=== PATIENT | male | born 1995 | race Two or more races ===

== ENCOUNTER 2020-10-23 06:32 | Emergency (ER) | payer OTHER, SELFPAY ==
--- NOTE | ~2020-10-23 | XR_ITS ---
EXAMINATION: XR SHOULDER, RIGHT CLINICAL INFORMATION: Right shoulder pain. COMPARISON: None TECHNIQUE: AP external rotation, Grashey, scapular Y, and axillary views of the right shoulder. FINDINGS: The bones and soft tissues are normal. No fracture. Glenohumeral and acromioclavicular alignment is anatomic with normal joint space. No abnormal soft tissue calcifications. XR/XR shoulder RT min 2V IMPRESSION: Normal right shoulder.
[2020-10-23 06:46] VITALS: BP 112/74; PULSE 61; RESP 16; TEMP 36.7; O2SAT 99; BMI 19.3
--- NOTE | 2020-10-23 07:07 | ED_ITS ---
HPI - Extremity Problem General Chief complaint: Extremity Injury, Upper Stated complaint: Dislocated Shoulder Time Seen by Provider: 10/23/20 07:07 History of Present Illness HPI Narrative: This is a 25 years old male presented to the emergency department ambulatory complaining of right shoulder pain. He states that dislocated these right shoulder and relocated MD Complaint: extremity pain Onset (ago): hour(s) (1) Pain Consistency: constant Location: right Severity scale (1-10): 6 Quality: aching and sharp Radiation: none Relieving factors: nothing Exacerbating factors: range of motion Associated symptoms: denies other symptoms Related Data Home Medications Medication Instructions Recorded Confirmed No Known Home Meds 05/13/20 05/13/20 Allergies Allergy/AdvReac Type Severity Reaction Status Date / Time No Known Allergies Allergy Verified 05/13/20 15:33 Review of Systems Review of Systems: Yes all other systems are reviewed and are negative Cardiovascular: Cardiovascular: Reports no additional cardiovascular complaints Gastrointestinal: Gastrointestinal: Reports no additional gastrointestinal complaints, Denies abdominal pain and Denies belching Neurologic: Reports system reviewed and no additional complaints, except as documented PMFSH Past Medical History Attestation statement: The following information was validated with the patient. Medical History Instability of right shoulder joint No significant past medical history Pain in right shoulder Surgical History S/P tonsillectomy Family History Family History Maternal Grandfather Hypertension Heart disease Maternal Grandmother Hypertension Paternal Grandfather Alzheimer's dementia Social History Social History Alcohol intake: current Alcohol intake frequency: holidays/special occasions only Advance Directives: No Advance Directives Information Provided: No Physical Exam 2 Vital Signs: Vital Signs: Last Vital Signs Temp 98.0 F 10/23/20 06:46 Pulse 61 10/23/20 06:46 Resp 16 10/23/20 06:46 BP 112/74 10/23/20 06:46 Pulse Ox 99 10/23/20 06:46 Body Mass Index 19.3 Const: Other: patient is awake and alert not acute distress Orientation/consciousness: oriented to person, oriented to place, oriented to time and patient oriented x3 HENMT: Head: Yes normal to inspection Ears: hearing grossly normal bilaterally General nose exam: Normal external nose present Face and sinus: Yes normal facial exam Mouth: Normal oral and palatal mucosa present Neck: Neck: Yes normal visual inspection and Yes full ROM Chest: Chest palpation & inspection: normal inspection of the chest and normal palpation of entire chest wall Resp: Effort & Inspection: normal respiratory effort Cardio: Jugular venous distension: no JVD Palpation: normal PMI Rate: regular rate GI: Inspection: Yes normal to inspection Palpation (GI): Soft to palpation, nontender and no guarding Skin: General skin exam: no rashes or lesions noted and elasticity normal Neuro: General: oriented to person, oriented to place, oriented to time and patient oriented x3 Extrem: Other: there is tenderness in the right shoulder joint decreased range of motion no deformity MDM - Extremity (Nontraumatic) Imaging Data rt shoulder: Radiologist's impression: [address] [id number] ReportSigned Patient: Chong CampoverdeMR#: [id number]: 1995Acct:[id number]/Sex: 25 / MADM Date: 10/23/20Loc: EDAttending Dr: Ordering Physician: Generic ED Physician Date of Service: 10/23/20 Procedure(s): XR shoulder RT min 2V Accession Number(s): [id number] cc: Generic ED Physician~ EXAMINATION: XR SHOULDER, RIGHT CLINICAL INFORMATION: Right shoulder pain. COMPARISON: None TECHNIQUE: AP external rotation, Grashey, scapular Y, and axillary views of the right shoulder. FINDINGS: The bones and soft tissues are normal. No fracture. Glenohumeral and acromioclavicular alignment is anatomic with normal joint space. No abnormal soft tissue calcifications. XR/XR shoulder RT min 2V IMPRESSION: Normal right shoulder. 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
[2020-10-23] MEDS: Ibuprofen 800 MG TABLET PO (07:41)
== END 2020-10-23 07:44 | disposition home or self-care (01) ==
PROVIDERS: Emergency Provider Emergency Medicine; PCP Internal Medicine
DX: M25.511 Pain in right shoulder (principal)
CPT/HCPCS: 73030; 99283

== ENCOUNTER 2020-10-30 14:34 | Emergency (ER) | payer OTHER, SELFPAY ==
--- NOTE | ~2020-10-30 | XR_ITS ---
EXAMINATION: XR SHOULDER, RIGHT CLINICAL INFORMATION: Posterior dislocation. COMPARISON: Right shoulder radiographs 10/23/2020. TECHNIQUE: Right shoulder is imaged in 3 views. FINDINGS: There is no fracture or dislocation. The glenohumeral joint appears normal. The acromioclavicular alignment is normal. External rotation view demonstrates fine curvilinear mineralization possibly calcific tendinosis adjacent to greater tuberosity, in retrospect similar to previous exam 10/23/2020. XR/XR shoulder RT min 2V IMPRESSION: No fracture or dislocation.
--- NOTE | 2020-10-30 14:40 | ED_ITS ---
HPI - Extremity Problem General Stated complaint: SHOULDER POPPED OUT AT WORK Time Seen by Provider: 10/30/20 14:40 Source: patient Mode of arrival: ambulatory Limitations: no limitations History of Present Illness Complaint: other (R shoulder dislocation) Onset (ago): minute(s) Pain Consistency: other (improved but it still hurts) Location: right and upper extremity (shoulder) Quality: aching Radiation: none Relieving factors: other (used circular movements to reduce shoulder) Exacerbating factors: range of motion Associated symptoms: denies other symptoms Context: other (chronic dislocations) Related Data Home Medications Medication Instructions Recorded Confirmed No Known Home Meds 05/13/20 05/13/20 Allergies Allergy/AdvReac Type Severity Reaction Status Date / Time No Known Allergies Allergy Verified 05/13/20 15:33 Review of Systems Review of Systems: Constitutional : No Fever, No Chills ENT/Mouth : No Ear Pain, No Hoarseness Eyes: No Eye Pain, No Swelling, No Redness Cardiovascular : No Chest Pain, No SOB Respiratory : No Cough, No Dyspnea Gastrointestinal : No Nausea, No Vomiting, No Diarrhea Genitourinary : No Dysuria, No Hematuria Musculoskeletal : positive joint pain, No Myalgias, No Joint Swelling Skin : No Skin lacerations, No rash Neuro : No Weakness, No Numbness PMFSH Past Medical History Attestation statement: The following information was validated with the patient. Medical History Instability of right shoulder joint No significant past medical history Pain in right shoulder Surgical History S/P tonsillectomy Family History Family History Maternal Grandfather Hypertension Heart disease Maternal Grandmother Hypertension Paternal Grandfather Alzheimer's dementia Social History Social History (Updated 10/30/20 @ 14:44 by Carmen Padilla DO) Alcohol intake: current Alcohol intake frequency: holidays/special occasions only Patient Tobacco Use Status: Never used Tobacco Physical Exam Vital Signs: Appearance: Alert. Oriented X3. No acute distress. Eyes: Pupils equal, round and reactive to light. ENT: Pharynx normal. Neck: Normal inspection. Neck supple. CVS: Normal heart rate and rhythm. Pulses normal. Respiratory: No respiratory distress. Breath sounds normal. Abdomen: Soft and non-tender. Skin: Skin warm and dry. Normal skin color. Normal skin turgor. Extremities: No lower extremity edema. No calf ttp no deformity of R shoulder can range but there is pain - distal NV intact Neuro: Oriented X 3. No motor deficit. No sensory deficit. Procedures Orthopedic Splinting/Casting Injury #1: Side: right Upper Extremity Injury Location: shoulder Upper Extremity Immobilizer: sling/shoulder immobilizer MDM - Extremity (Nontraumatic) MDM Narrative Medical decision making narrative: 25yo male with recurrent shoulder dislocations - pushing cart at work shoulder popped out he is NV intact, shoulder is in on clinical exam, xray and sling ordered, will likely need orthopedic follow up Discharge Plan Discharge Clinical Impression: Anterior shoulder dislocation Qualifiers: Encounter type: initial encounter Laterality: right Qualified Code(s): S43.014A - Anterior dislocation of right humerus, initial encounter Patient Disposition: Home, Self-Care Instructions: Shoulder Dislocation (ED) Additional Instructions: return to ED for any worsening symptoms or concerns wear sling for 3 days - then avoid movements over the head, pulling, behind the back for 2 weeks Prescriptions: No Action No Known Home Meds RF: 0 Referrals: Shiraz Dillon PA-C [Physician Administrative Secretary] - 2 weeks Stand Alone Forms: Work/School Release
[2020-10-30 15:00] VITALS: BP 128/76; PULSE 86; RESP 18; TEMP 36.8; O2SAT 97; BMI 19.3
[2020-10-30] MEDS: Ibuprofen 600 MG TABLET PO (15:39)
[2020-10-30] MEDS: Acetaminophen 325 MG TABLET 650 MG PO (15:39)
== END 2020-10-30 15:44 | disposition home or self-care (01) ==
LOC: HO.ED 15:20
PROVIDERS: Emergency Provider Emergency Medicine; PCP Internal Medicine
DX: M24.411 Recurrent dislocation, right shoulder (principal)
CPT/HCPCS: 73030; 99283

== ENCOUNTER 2021-09-02 08:48 | Emergency (ER) | payer OTHER, SELFPAY ==
--- NOTE | 2021-09-02 | ECG_ITS ---
Test Reason : CP Blood Pressure : / mmHG Vent. Rate : 113 BPM Atrial Rate : 113 BPM P-R Int : 114 ms QRS Dur : 092 ms QT Int : 304 ms P-R-T Axes : 073 092 057 degrees QTc Int : 416 ms Sinus tachycardia Rightward axis Cannot rule out Anterior infarct , age undetermined Abnormal ECG No previous ECGs available Referred By: Generic ED Physician Electronically Signed By:JUAN DAVID SONI MD
--- NOTE | ~2021-09-02 | XR_ITS ---
EXAMINATION: XR CHEST CLINICAL INFORMATION: Cough and chills. COMPARISON: None TECHNIQUE: 2 views of the chest were obtained. FINDINGS: No significant abnormality is noted involving the heart, lungs, mediastinum, bony thorax or soft tissues. XR/XR chest 2V IMPRESSION: No acute cardiopulmonary process.
[2021-09-02 08:56] VITALS: BP 145/86; PULSE 110; RESP 17; TEMP 36.6; O2SAT 99
[2021-09-02 09:41] LABS: COVID-19 Test Negative (Negative); IDNOW Serial# 16C4AD1C
[2021-09-02 10:22] LABS: IDNOW Serial# 55D5AD1C; Influenza A Negative (Negative); Influenza B2 Negative (Negative)
--- NOTE | 2021-09-02 10:25 | ED_ITS ---
HPI - URI/Sore Throat General Chief Complaint: Upper Respiratory Symptoms Stated Complaint: Covid symptoms Time Seen by Provider: 09/02/21 09:29 Source: patient Mode of arrival: ambulatory Limitations: no limitations History of Present Illness HPI Narrative: 26-year-old male presenting to the ED with complaints of 2 days of fatigue, malaise, body aches, nasal congestion/ rhinorrhea, cough without any sputum with chest tightness and lightheadedness. Reports that he recently was in the clubs exposed to multiple people and was not wearing a mask although denies any sick contacts that he is aware of. He denies any actual measured fevers, neck pain / stiffness, trouble swallowing or breathing, sore throat, loss of smell, ear pain, shortness of breath, dyspnea on exertion, orthopnea, palpitations, nausea/vomiting / diarrhea constipation, abdominal pain, rashes, recent travel or any other symptoms complaints or concerns at this time. MD elicited complaint: cough, rhinorrhea and nasal congestion Onset (ago): day(s) (2) Consistency: constant and progressively worsening Severity: mild Description of mucous: clear and watery Able to tolerate fluids by mouth: Yes Exacerbating factors: deep breaths Relieving factors: nothing Context: other ( He reports that he has recently been in the clubs therefore exposed to multiple people and not wearing a mask) Associated symptoms: chills, myalgias, headache, rhinorrhea, nasal congestion, cough and other ( decreased taste sensation) Treatments prior to arrival: none Related Data Previous Rx's Medication Instructions Recorded albuterol sulfate 90 mcg/actuation 1 inh INHALATION QID PRN #8.5 g 09/02/21 aerosol inhaler azithromycin 250 mg tablet See Rx Instructions .ROUTE 09/02/21 .COMPLEX #6 tab codeine 10 mg-guaifenesin 100 mg/5 5 ml PO Q6H PRN #120 ml 09/02/21 mL oral liquid (Guaifenesin AC) Allergies Allergy/AdvReac Type Severity Reaction Status Date / Time No Known Allergies Allergy Verified 05/13/20 15:33 Review of Systems Review of Systems: Constitutional : + Chills/fatigue/malaise,No Weight loss, No Fever, No Chills, No Night Sweats, No Fatigue, No Malaise ENT/Mouth : + nasal congestion/ rhinorrhea and decreased taste sensation, No Hearing loss, No Ear Pain, No Sinus Pain, No Hoarseness, No sore throat, No Swallowing Difficulty Eyes: No Eye Pain, No Swelling, No Redness, No Foreign Body, No Discharge, No Vision Changes Cardiovascular : No Chest Pain, No SOB, No Dyspnea on Exertion, No Orthopnea, No Edema, No Palpitations Respiratory : + Cough with chest tightness, No Sputum, No Wheezing, No Smoke Exposure, No Dyspnea Gastrointestinal : No Nausea, No Vomiting, No Diarrhea, No Constipation, No abdominal Pain, No Hematochezia, No Melena Genitourinary : no irregular bleeding, No Dysuria, No Urinary Frequency, No Hematuria, No Urinary Incontinence, No Urgency, No Flank Pain, No Urinary Flow Changes, No Hesitancy Musculoskeletal : No joint pain, + Myalgias, No Joint Swelling Skin : No Skin Lesions, No rash Neuro : No Weakness, No Numbness, No Paresthesias, No Loss of Consciousness, No Dizziness, No Headache Psych : No Anxiety/Panic, No Depression, No SI/HI/AH/VH, No Social Issues, Heme/Lymph: No Bruising, No Bleeding,No Lymphadenopathy Endocrine : No Polyuria, No Polydipsia, No Temperature Intolerance Yes all other systems are reviewed and are negative [facility] Past Medical History Attestation statement: The following information was validated with the patient. Medical History Instability of right shoulder joint Pain in right shoulder Surgical History S/P tonsillectomy Family History Family History Maternal Grandfather Hypertension Heart disease Maternal Grandmother Hypertension Paternal Grandfather Alzheimer's dementia Social History Social History Alcohol intake: current Alcohol intake frequency: holidays/special occasions only Patient Tobacco Use Status: Never used Tobacco Advance Directives: No Advance Directives Information Provided: No Physical Exam Vital Signs: Vital Signs: Last Vital Signs Temp 97.9 F 09/02/21 08:56 Pulse 95 09/02/21 10:27 Resp 17 09/02/21 10:27 BP 145/86 H 09/02/21 08:56 Pulse Ox 97 09/02/21 10:27 BMI result Body Mass Index 20.0 vital signs have been reviewed as normal and appeared to be correct. Blood pressure 145/86. Heart rate 110 Respiration rate normal. Temperature normal. Oxygen saturation normal. Appearance: Alert. Oriented X3. No acute distress. Head: Normal external exam. Normocephalic. Atraumatic. Eyes: PERRLA. EOMI. Conjunctiva and sclera normal. Eyelids normal. ENT: EAC normal. TM's Normal. Pharynx normal. Uvula midline. Moist mucous membranes. No lesions/ulcerations or masses noted on the tongue. Normal voice. No trismus noted. No drooling noted. No muffled voice noted. Neck: Normal inspection. Neck supple. FROM. No adenopathy. Thyroid Normal. No meningeal signs. No neck mass noted. CVS: Normal heart rate and rhythm. Heart sound normal. Pulses normal throughout. No murmurs/rales/gallops. Respiratory: No respiratory distress. Painless inspiration. Breath sounds normal. No wheezes/rales/rhonchi noted. Chest nontender. No accessory muscle usage noted or decreased air movement noted. Abdomen: Soft and nontender. Back: Full range of motion noted. Nontender. No signs of trauma. Patient neuro intact bilaterally and distally on all 4 extremities. Patient's reflexes intact bilaterally and distally on all 4 extremities. No rashes/lesion/induration/fluctuance or signs of infection noted. Skin: Skin warm and dry. Normal skin color. Normal skin turgor. No rashes/lesions/lacerations noted. Extremities: No lower extremity edema. No calf tenderness is noted. Extremities exhibit normal range of motion and nontender. Neuro: Oriented X 3. No motor deficit. No sensory deficit. Reflexes normal. Normal steady gait. No focal neuro deficits noted. CN's II-XII intact bilaterally? Vascular: + radial pulses/+ 2 distal pedal pulses/+2 dorsalis pedis b/l. Normal cap refill. No cyanosis noted to upper extremity nails and lower extremity toes nails. Course Course Course Narrative: 26-year-old male presenting to the ED with complaints of 2 days of fatigue, malaise, body aches, nasal congestion/ rhinorrhea, cough without any sputum with chest tightness and lightheadedness. Reports that he recently was in the clubs exposed to multiple people and was not wearing a mask although denies any sick contacts that he is aware of. He denies any actual measured fevers, neck pain / stiffness, trouble swallowing or breathing, sore throat, loss of smell, ear pain, shortness of breath, dyspnea on exertion, orthopnea, palpitations, nausea/vomiting / diarrhea constipation, abdominal pain, rashes, recent travel or any other symptoms complaints or concerns at this time. patient negative for COVID. Patient negative for flu. Chest x-ray within normal limits. EKG sinus tachycardia with ventricular rate of 113 with a right leo axis no acute ischemic changes are noted. No prior EKGs to compare to at this time. Will DC home with symptomatic treatment instructions return if any new or worsening symptoms to follow up with primary care provider. Patient understands agrees with this plan. MDM - URI/Sore Throat Medical Records Attestation: I reviewed the patient's medical records. Lab Data Attestation: I reviewed the patient's lab results. Labs: Lab Results 09/02/21 09/02/21 Range/Units 08:56 09:55 COVID-19 ([facility]) Negative (Negative) COVID-19 Clin Com See Note Influenza Type A ([facility]) Negative (Negative) Influenza Type B ([facility]INA) Negative (Negative) Influenza A & B Note See Note ECG Data Attestation: I personally reviewed and interpreted this ECG as follows: ECG interpretation date: 09/02/21 ECG interpretation time: 08:57 Interpretation: EKG sinus tachycardia with ventricular rate of 113 with a right leo axis no acute ischemic changes are noted. No prior EKGs to compare to at this time. Discharge Plan Discharge Clinical Impression: Upper respiratory infection Patient Disposition: Home, Self-Care Instructions: Upper Respiratory Infection (ED) Prescriptions: New azithromycin 250 mg tablet See Rx Instructions .ROUTE .COMPLEX Qty: 6 0RF Rx Instructions: take 500 mg today (day 1), then 250 mg for 4 days (days 2-5) codeine-guaifenesin [Guaifenesin AC] 10-100 mg/5 mL liquid 5 ml PO Q6H PRN (Reason: cold symptoms) Qty: 120 0RF albuterol sulfate 90 mcg/actuation HFA aerosol inhaler 1 inh inhalation QID PRN (Reason: shortness of breath or wheezing) Qty: 8.5 0RF Referrals: Katrin Peña MD [Primary Care Provider] - 2 days Stand Alone Forms: Work/School Release
[2021-09-02 10:27] VITALS: PULSE 95; RESP 17; O2SAT 97
== END 2021-09-02 11:01 | disposition home or self-care (01) ==
PROVIDERS: Physician Assistant Medical; Emergency Provider Emergency Medicine; PCP Internal Medicine
DX: J06.9 Acute upper respiratory infection, unspecified (principal); R07.89 Other chest pain; M79.10 Myalgia, unspecified site; R50.9 Fever, unspecified; R05.9 Cough, unspecified; Z20.822 Contact with and (suspected) exposure to COVID-19; Z79.899 Other long term (current) drug therapy
CPT/HCPCS: 71046; 87502; 87635; 93005; 99283; 99284

== ENCOUNTER → 2022-03-23 15:47 | Outpatient (BNVA) | payer OTHER, SELFPAY | PROVIDERS: PCP Internal Medicine; Visit Provider Surgery | DX: L72.0 Epidermal cyst (principal) | CPT/HCPCS: 99202 ==

== ENCOUNTER 2022-03-27 10:09 | Outpatient (REF) | payer OTHER, SELFPAY ==
--- NOTE | ~2022-03-27 | XR_ITS ---
EXAMINATION: XR SHOULDER, RIGHT CLINICAL INFORMATION: Pain in shoulder COMPARISON: X-ray the right shoulder October 2020 TECHNIQUE: AP external rotation, Grashey, scapular Y, and axillary views of the right shoulder. FINDINGS: The bones and soft tissues are normal. No fracture. Glenohumeral and acromioclavicular alignment is anatomic with normal joint space. No abnormal soft tissue calcifications. XR/XR shoulder RT min 2V IMPRESSION: Normal right shoulder. The previously noted mineralization adjacent to the greater tuberosity on the prior x-ray is not identified
== END 2022-03-27 10:10 | disposition home or self-care (01) ==
LOC: HO.HOSX 10:09
PROVIDERS: Visit Provider Physician Assistant
DX: M25.311 Other instability, right shoulder (principal)
CPT/HCPCS: 73030; 99202; 99212

== ENCOUNTER 2022-04-01 16:56 | Outpatient (REF) | payer OTHER, SELFPAY ==
[2022-04-01 18:23] LABS: Influenza A PCR NEGATIVE (Negative); Influenza B PCR NEGATIVE (Negative); Resp Syncy Virus RNA Qual PCR NEGATIVE (Negative); SARS COV2 PCR INHOUSE NEGATIVE (Negative)
== END 2022-04-01 16:57 | disposition home or self-care (01) ==
LOC: HO.LAB 16:56
PROVIDERS: Visit Provider Internal Medicine
DX: R09.89 Other specified symptoms and signs involving the circulatory and respiratory systems (principal); Z20.822 Contact with and (suspected) exposure to COVID-19
CPT/HCPCS: 0241U

== ENCOUNTER 2022-04-03 10:57 | Emergency (ER) | payer OTHER, SELFPAY ==
--- NOTE | 2022-04-03 11:02 | ED.DENTAL ---
HPI - Dental/Oral General Chief complaint: Dental/Oral <WINSTON Bright - Last Filed: 04/03/22 11:10> Stated complaint: ? Dental Abscess <WINSTON Bright - Last Filed: 04/03/22 11:10> Time Seen by Provider: 04/03/22 11:18 <WINSTON Bright - Last Filed: 04/03/22 11:10> Source: patient and family ( Mother at bedside) <WINSTON Edwards - Last Filed: 04/03/22 12:43> Mode of arrival: ambulatory <WINSTON Edwards - Last Filed: 04/03/22 12:43> Limitations: no limitations <WINSTON Edwards - Last Filed: 04/03/22 12:43> History of Present Illness HPI Narrative: 26-year-old male presenting to the ER with complaints of left upper dental pain/ facial swelling since yesterday worse today. Reports he has not gone to a dentist recently. Denies any fevers, trouble swallowing or breathing, any drooling or trouble handling secretions or change in his voice or any rashes or any falls or trauma or any other symptoms complaints or concerns at this time. <WINSTON Edwards - Last Filed: 04/03/22 12:43> MD Complaint: tooth pain <WINSTON Edwards - Last Filed: 04/03/22 12:43> Teeth map: 1. <WINSTON Bright - Last Filed: 04/03/22 11:10> 1. <WINSTON Edwards - Last Filed: 04/03/22 12:43> Onset (ago): day(s) ( Since yesterday worse today) <WINSTON Edwards - Last Filed: 04/03/22 12:43> Duration: constant <WINSTON Edwards - Last Filed: 04/03/22 12:43> Severity: moderate <WINSTON Edwards - Last Filed: 04/03/22 12:43> Severity scale (1-10): >10 <WINSTON Edwards - Last Filed: 04/03/22 12:43> Relieving factors: nothing <WINSTON Edwards - Last Filed: 04/03/22 12:43> Exacerbating factors: chewing and other ( and palpation) <WINSTON Edwards Last Filed: 04/03/22 12:43> Context: history of dental caries and poor dental care <WINSTON Edwards Last Filed: 04/03/22 12:43> Associated symptoms: gum swelling, ear pain and other ( facial swelling) <WINSTON Edwards Last Filed: 04/03/22 12:43> Treatment prior to arrival: other ( he has been trying [id number] Motrin and Tylenol no symptomatic) <WINSTON Edwards Last Filed: 04/03/22 12:43> Related Data Home medications: Previous Rx's Medication Instructions Recorded albuterol sulfate 90 mcg/actuation 1 inh inhalation QID PRN shortness 09/02/21 aerosol inhaler of breath or wheezing #8.5 grams ibuprofen 800 mg tablet 800 mg PO Q8H PRN pain #14 tabs 04/03/22 oxycodone 5 mg tablet 5 mg PO Q6H PRN pain #14 tabs 04/03/22 penicillin V potassium 500 mg 500 mg PO Q12H dental pain 10 04/03/22 tablet days #20 tabs <WINSTON Bright Last Filed: 04/03/22 11:10> Allergies/adverse reactions: Allergies Allergy/AdvReac Type Severity Reaction Status Date / Time No Known Allergies Allergy Verified 04/01/22 16:48 <WINSTON Bright Last Filed: 04/03/22 11:10> Review of Systems Review of Systems: Constitutional : No Fever, No Chills, No changes in PO intake, No difficulty speaking, no recent dental procedure, no heat or cold intolerance while eating, no recent face trauma, ENT/Mouth : + Dental pain / facial swelling/ear pain, No Sore throat, No Jaw pain, No throat swelling, No swallowing difficulty, no change in voice, no drooling, no trismus, no bleeding, no lacerations, no tongue swelling, gum swelling, Eyes: No Eye Pain, No periorbital Swelling Cardiovascular : No Chest Pain, No SOB Respiratory : No Cough, No Sputum, No Wheezing, No Smoke Exposure, No Dyspnea Gastrointestinal : No Nausea, No Vomiting, No Diarrhea Genitourinary : No Dysuria Musculoskeletal : No Myalgias Skin : No rash, no facial swelling or redness, Neuro : No Weakness, No Numbness, No Headache <WINSTON Edwards - Last Filed: 04/03/22 12:43> Yes all other systems are reviewed and are negative <WINSTON Edwards - Last Filed: 04/03/22 12:43> [facility] Past Medical History Attestation statement: The following information was validated with the patient. <WINSTON Edwards - Last Filed: 04/03/22 12:43> Source: old records reviewed, obtained from family and nursing notes reviewed <WINSTON Edwards - Last Filed: 04/03/22 12:43> Medical History: Medical History Epidermal cyst of neck Instability of right shoulder joint Pain in right shoulder <WINSTON Bright - Last Filed: 04/03/22 11:10> Surgical History: Surgical History S/P tonsillectomy <WINSTON Bright - Last Filed: 04/03/22 11:10> Family History Family History: Family History Maternal Grandfather Hypertension Heart disease Maternal Grandmother Hypertension Paternal Grandfather Alzheimer's dementia <WINSTON Bright - Last Filed: 04/03/22 11:10> Social History Social History: Social History Housing: Apartment Alcohol intake: current Alcohol intake frequency: a few times a month Patient Tobacco Use Status: Never used Tobacco Use of substances other than those prescribed or required for medical reasons: Yes Substance Use Type: Marijuana Advance Directives: No Advance Directives Information Provided: Yes Current occupational status: employed Cognitive needs: No Hearing needs: No Vision needs: No <WINSTON Bright - Last Filed: 04/03/22 11:10> Physical Exam Vital Signs: Vital Signs: Last Vital Signs Temp 97.4 F 04/03/22 11:03 Pulse 100 04/03/22 11:03 Resp 16 04/03/22 11:03 BP 104/74 04/03/22 11:03 Pulse Ox 96 04/03/22 11:03 O2 Del Method 04/03/22 11:03 BMI result Body Mass Index 20.2 <WINSTON Bright - Last Filed: 04/03/22 11:10> Vital Signs: Last Vital Signs Temp 97.4 F 04/03/22 11:03 Pulse 100 04/03/22 11:03 Resp 16 04/03/22 11:03 BP 104/74 04/03/22 11:03 Pulse Ox 96 04/03/22 11:03 O2 Del Method 04/03/22 11:03 BMI result Body Mass Index 20.2 vital signs have been reviewed as normal and appeared to be correct. Blood pressure normal. Heart rate normal. Respiration rate normal. Temperature normal. Oxygen saturation normal. <WINSTON Edwards - Last Filed: 04/03/22 12:43> Appearance: Alert. Oriented X3. No acute distress. Head: Normal external exam. Normocephalic. Atraumatic. Eyes: PERRLA. EOMI. Conjunctiva and sclera normal. Eyelids normal. ENT: EAC normal. TM's Normal. Pharynx normal. Uvula midline. Moist mucous membranes. No trismus noted. No drooling noted. No muffled voice noted. Dentition: Patient with poor dentition throughout with multiple old fractured teeth with multiple dental caries. to the left 2nd bicuspid / 1st molar upper aspect patient has a dental abscess. Patient does have mild trismus. No drooling / stridor noted. Patient tolerating secretions well. The rest of the Gingival within normal limits no additional fluctuance. Not consistent with peritonsillar abscess. Not c/w pharyngeal abscess. No salivary duct obstruction noted. Patient does have left facial swelling. No jaw swelling or mandibular swelling. Neck: Normal inspection. Neck supple. FROM. No adenopathy. Thyroid Normal. No meningeal signs. No neck mass noted. Trachea midline. CVS: Normal heart rate and rhythm. Heart sound normal. No murmurs noted. Pulses normal throughout. Respiratory: No respiratory distress. Painless inspiration. Breath sounds normal. No wheezes/rales/rhonchi noted. Chest nontender. No accessory muscle usage noted or decreased air movement noted. Back: Full range of motion noted. Skin: Skin warm and dry. Normal skin color. Normal skin turgor. No rashes/lesions/lacerations noted. Extremities:Extremities exhibit normal range of motion. Extremities nontender. Neuro: Oriented X 3. No motor deficit. No sensory deficit. Reflexes normal. <WINSTON Edwards - Last Filed: 04/03/22 12:43> Course Course Course Narrative: RME--26yo M presenting c/o L sided facial pain & swelling x yesterday with difficulty opening mouth and radiation to L ear. Denies recent dental trauma/procedures or fever. Notable facial swelling on exam, TM WNL. + trismus, unable to palpate fluctuant area however patient very difficult to examine triage, suspect dental abscess that will need I & D p.o. Motrin ordered <WINSTON Bright - Last Filed: 04/03/22 11:10> Reevaluation(s) Reevaluation #1: Patient now status post I&D of left dental abscess. Patient tolerated procedure well. No complications. Will DC home with antibiotics and symptomatic treatment instructions to follow up with an oral surgeon to return if any new or worsening symptoms. Patient with mother at bedside understand agree this plan. <WINSTON Edwards - Last Filed: 04/03/22 12:43> Time: 12:41 <WINSTON Edwards - Last Filed: 04/03/22 12:43> Medications Administered Discontinued Medications Generic Name Dose Route Start Last Admin Trade Name Freq PRN Reason Stop Dose Admin Ibuprofen 600 mg 04/03/22 11:09 04/03/22 11:24 Ibuprofen 600 Mg Tablet PO 04/03/22 11:10 Not Given ONCE ONE Lidocaine HCl 2 ml 04/03/22 11:43 04/03/22 11:49 Lidocaine Hcl 1 % Mpf 2 Ml Vial INFILTRATI 04/03/22 11:44 2 ml ONCE ONE Administration Lidocaine HCl 2 ml 04/03/22 11:43 04/03/22 11:49 Lidocaine Hcl 1 % Mpf 2 Ml Vial INFILTRATI 04/03/22 11:44 2 ml ONCE ONE Administration Lidocaine HCl 15 ml 04/03/22 11:43 04/03/22 11:49 Lidocaine Hcl Viscous 2 % 15 Ml Solution MUCOUS MEM 04/03/22 11:44 15 ml ONCE ONE Administration Oxycodone HCl 5 mg 04/03/22 11:43 04/03/22 11:49 Oxycodone Hcl Immed Release 5 Mg Tablet PO 04/03/22 11:44 5 mg ONCE ONE Administration <WINSTON Bright - Last Filed: 04/03/22 11:10> Medications Administered Discontinued Medications Generic Name Dose Route Start Last Admin Trade Name Barbara PRN Reason Stop Dose Admin Ibuprofen 600 mg 04/03/22 11:09 04/03/22 11:24 Ibuprofen 600 Mg Tablet PO 04/03/22 11:10 Not Given ONCE ONE Lidocaine HCl 2 ml 04/03/22 11:43 04/03/22 11:49 Lidocaine Hcl 1 % Mpf 2 Ml Vial INFILTRATI 04/03/22 11:44 2 ml ONCE ONE Administration Lidocaine HCl 2 ml 04/03/22 11:43 04/03/22 11:49 Lidocaine Hcl 1 % Mpf 2 Ml Vial INFILTRATI 04/03/22 11:44 2 ml ONCE ONE Administration Lidocaine HCl 15 ml 04/03/22 11:43 04/03/22 11:49 Lidocaine Hcl Viscous 2 % 15 Ml Solution MUCOUS MEM 04/03/22 11:44 15 ml ONCE ONE Administration Oxycodone HCl 5 mg 04/03/22 11:43 04/03/22 11:49 Oxycodone Hcl Immed Release 5 Mg Tablet PO 04/03/22 11:44 5 mg ONCE ONE Administration <WINSTON Edwards - Last Filed: 04/03/22 12:43> Medical Decision Making Medical Decision Making Independent historian (e.g., spouse, EMS, friend): Independent historian (e.g., spouse, EMS, friend) Clinical information obtained from an independent historian. History obtained from or confirmed by: Parent <WINSTON Edwards - Last Filed: 04/03/22 12:43> Procedures Abscess I/D Site: oral <WINSTON Edwards - Last Filed: 04/03/22 12:43> Side (if applicable): left <WINSTON Edwards - Last Filed: 04/03/22 12:43> Local Anesthetic: lidocaine 1% <WNISTON Edwards Last Filed: 04/03/22 12:43> Amount of anesthesia used (mL): 4 <WNISTON Edwards - Last Filed: 04/03/22 12:43> Technique: needle aspiration <WINSTON Edwards - Last Filed: 04/03/22 12:43> Amount of fluid expressed (mL): 5 <WINSTON Edwards - Last Filed: 04/03/22 12:43> Sent for culture/gram staining?: No <WINSTON Edwards - Last Filed: 04/03/22 12:43> Irrigation: Yes <WINSTON Edwards - Last Filed: 04/03/22 12:43> Packing used?: none <WINSTON Edwards - Last Filed: 04/03/22 12:43> Discharge Plan Discharge Clinical Impression: Dental abscess <WINSTON Bright - Last Filed: 04/03/22 11:10> Patient Disposition: Home, Self-Care <WINSTON Bright - Last Filed: 04/03/22 11:10> Instructions: Dental Abscess (ED), Abscess Incision and Drainage (DC) <WINSTON Bright - Last Filed: 04/03/22 11:10> Additional Instructions: please follow-up with an oral surgeon within 1 week. Return if any new or worsening symptoms. Follow up with your primary care provider as well. <WINSTON Bright - Last Filed: 04/03/22 11:10> Prescriptions: New penicillin V potassium 500 mg tablet 500 mg PO Q12H 10 Days Qty: 20 0RF oxycodone 5 mg tablet 5 mg PO Q6H PRN (Reason: pain) Qty: 14 0RF Rx Instructions: Partial Fill upon patient request. ibuprofen 800 mg tablet 800 mg PO Q8H PRN (Reason: pain) Qty: 14 0RF No Action albuterol sulfate 90 mcg/actuation HFA aerosol inhaler 1 inh inhalation QID PRN (Reason: shortness of breath or wheezing) Qty: 8.5 0RF <WINSTON Bright - Last Filed: 04/03/22 11:10> Referrals: Arnaud George MD [Primary Care Provider] - 2 days <WINSTON Bright Last Filed: 04/03/22 11:10> Stand Alone Forms: Work/School Release <WINSTON Bright - Last Filed: 04/03/22 11:10>
[2022-04-03 11:03] VITALS: BP 104/74; PULSE 100; RESP 16; TEMP 36.3; O2SAT 96; BMI 20.2
[2022-04-03] MEDS: Lidocaine HCl Viscous 2 % 15 ML SOLUTION MUCOUS MEM (11:49)
[2022-04-03] MEDS: oxyCODONE HCl Immed Release 5 MG TABLET PO (11:49)
[2022-04-03] MEDS: Lidocaine HCl 1 % MPF 2 ML VIAL INFILTRATI ×2 (11:49)
== END 2022-04-03 13:06 | disposition home or self-care (01) ==
PROVIDERS: Emergency Provider Emergency Medicine Emergency Medical Services; PCP Internal Medicine
DX: K04.7 Periapical abscess without sinus (principal); Z79.899 Other long term (current) drug therapy
CPT/HCPCS: 41800; 99284

== ENCOUNTER 2022-04-15 14:53 | Outpatient (REF) | payer OTHER, SELFPAY | END 2022-04-15 14:54 | disposition home or self-care (01) | LOC: HO.LNP 14:53 | PROVIDERS: PCP Internal Medicine; Visit Provider Surgery | DX: L72.0 Epidermal cyst (principal) | CPT/HCPCS: 11422; 88304 ==

== ENCOUNTER 2022-05-25 13:35 | Outpatient (REF) | payer OTHER, SELFPAY ==
[2022-05-25 16:47] LABS: Hematocrit 46.6 % (42.0-52.0); Hemoglobin 15.8 g/dl (14.0-18.0); Mean Corpuscular HGB Conc 33.9 g/dl (31.0-36.0); Mean Corpuscular Hemoglobin 30.2 pg (27.0-33.0); Mean Corpuscular Volume 89.1 fL (80.0-98.0); Mean Platelet Volume 10.1 fL (9.4-12.4); Platelet Count 254 X10*3/uL (160-400); Red Blood Count 5.23 X10*6/uL (4.60-5.80); Red Cell Distribution Width 11.7 % (11.0-16.0); White Blood Count 12.1 X10*3/uL (4.8-10.8)
[2022-05-25 17:07] LABS: Alanine Aminotransferase 14 U/L (0-40); Albumin Level 4.8 g/dL (3.5-5.0); Alkaline Phosphatase 53 U/L (39-117); Anion Gap 13 (12-20); Aspartate Amino Transferase 15 U/L (5-37); Bilirubin Direct 0.3 mg/dL (0.0-0.5); Blood Urea Nitrogen 12 mg/dL (9-16); Calcium 10.1 mg/dL (8.4-10.2); Carbon Dioxide 27 mmol/L (22-29); Chloride 104 mmol/L (96-108); Estimated Glomerular Filt Rate > 60; Glucose Random 108 mg/dL (60-115); Sodium 140 mmol/L (135-145); Total Protein 7.3 g/dL (6.5-8.0)
[2022-05-25 17:25] LABS: Erythrocyte Sedimentation Rate 2 MM/HR (0-15); Thyroid Stimulating Hormone 0.63 uIU/mL (0.32-4.0)
== END 2022-05-25 13:36 | disposition home or self-care (01) ==
LOC: HO.HMGCLDS 13:35
PROVIDERS: Internal Medicine; Visit Provider Internal Medicine
DX: R00.2 Palpitations (principal)
CPT/HCPCS: 36415; 80048; 80076; 84443; 85027; 85652

== ENCOUNTER 2022-11-09 13:31 | Outpatient (AMB) | payer OTHER, SELFPAY ==
[2022-11-09 13:34] VITALS: BP 108/64; BMI 19.7
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
== END 2022-11-09 14:08 | disposition home or self-care (01) ==
PROVIDERS: PCP Internal Medicine; Visit Provider Internal Medicine
DX: Z48.02 Encounter for removal of sutures (principal)
CPT/HCPCS: 99212

== ENCOUNTER 2023-04-17 09:05 | Emergency (ER) | payer OTHER, SELFPAY ==
--- NOTE | ~2023-04-17 | XR_ITS ---
EXAMINATION: XR chest 2V CLINICAL INFORMATION: Reason for Exam productive cough, chills COMPARISON: No prior chest x-ray available in our system for comparison at the time of this dictation. TECHNIQUE: XR chest 2V, 2 Views Lungs and Katherine: Newly developed infiltrates presumably pneumonia right lower lobe. Pleura: Normal. Costophrenic angles are sharp. No pneumothorax. Heart: The heart is normal in size. Mediastinum: The mediastinum is within normal limits.. Bones: Skeletal structures included are normal for patient's age. XR/XR chest 2V IMPRESSION: * Newly developed infiltrates presumably pneumonia right lower lobe. * No pleural effusion.
[2023-04-17 09:07] VITALS: BP 125/79; PULSE 125; RESP 20; TEMP 36.8; O2SAT 95; BMI 22.4
--- NOTE | 2023-04-17 09:21 | ED.GENADULT ---
HPI - General Adult General Chief complaint: Upper Respiratory Symptoms Stated complaint: cough r hip into r side back pain Time Seen by Provider: 04/17/23 09:20 Source: patient Mode of arrival: ambulatory Limitations: no limitations History of Present Illness HPI narrative: Patient is a 27-year-old male presenting to the emergency department with complaint of productive cough and subjective fevers for the past 3 days. Also complains of right lower rib pain. Denies fall or other trauma. States has been taking Tylenol and ibuprofen but complains of ongoing pain. States nephew is sick with similar symptoms. Denies sore throat, ear pain, nausea, vomiting, diarrhea. Denies chest pain or palpitations. Denies recent calf pain or swelling, lower extremity edema. Denies any hemoptysis. complaint: cough, rib pain Onset (ago): day(s) Radiation: non-radiation Severity scale (1-10): 8 Quality: aching Pain Consistency: intermittent (worse with coughing) Relieving factors: none Associated symptoms: fever/chills Treatments prior to arrival: NSAID Related Data Previous Rx's Medication Instructions Recorded doxycycline hyclate 100 mg capsule 100 mg PO BID #10 caps 04/17/23 lidocaine 5 % topical patch 1 patch topical DAILY #15 ea 04/17/23 Allergies Allergy/AdvReac Type Severity Reaction Status Date / Time No Known Allergies Allergy Verified 04/17/23 09:11 Review of Systems Review of Systems: As per HPI. Yes all other systems are reviewed and are negative Constitutional: Constitutional: Reports as per HPI [facility], [facility] Past Medical History Medical History Epidermal cyst of neck Instability of right shoulder joint Pain in right shoulder Surgical History S/P tonsillectomy Family History Family History (Updated 11/09/22 @ 13:37 by EMILIE Burks) Maternal Grandfather Hypertension Heart disease Maternal Grandmother Hypertension Paternal Grandfather Alzheimer's dementia Mental health disorder Social History Social History Housing: Apartment Alcohol intake: current Alcohol intake frequency: a few times a month Patient Tobacco Use Status: Never used Tobacco e-Cigarette/Vaping Use: Never Used Second Hand Smoke Exposure: No Substance Use Type: Marijuana Advance Directives: No Advance Directives Information Provided: No service: No Current occupational status: employed Current occupational exposures/hazards: No Cognitive needs: No Hearing needs: No Vision needs: No Physical Exam ED Vital Signs: Vital Signs - 24 hr 04/17/23 09:07 Temperature 98.3 F Pulse Rate 125 H Respiratory Rate 20 Blood Pressure 125/79 Pulse Oximetry 95 Oxygen Delivery Method Room Air BMI result Body Mass Index 22.4 Vital signs have been reviewed and appear to be correct. Blood pressure normal. Heart rate tachycardic. Respiratory rate normal. Temperature normal. Oxygen saturation normal. Const General: cooperative, healthy appearing and no acute distress Orientation/consciousness: oriented to person, oriented to place, oriented to time and patient oriented x3 Limitations: no limitations HENMT Head: Yes normocephalic and Yes atraumatic Ears: external ears normal General nose exam: Normal external nose present Face and sinus: Yes face symmetric Mouth: oropharynx normal and moist mucous membranes Throat: Yes uvula midline Eyes Pupils: Equal, round and reactive pupils present Neck Neck: Yes normal visual inspection and Yes supple Chest Chest palpation & inspection: normal inspection of the chest and normal palpation of entire chest wall Resp Effort & Inspection: normal respiratory effort and able to speak in complete sentences Auscultation: clear to auscultation bilaterally Cardio Rate: regular rate Rhythm: regular rhythm Heart sounds: S1 normal heart sound present and S2 normal heart sound present GI Palpation (GI): Soft to palpation and nontender Auscultation: normoactive bowel sounds General: Yes no CVA tenderness Back/Spine/Pelvis Back: no CVA tenderness Skin General skin exam: elasticity normal and turgor normal Neuro General: oriented to person, oriented to place, oriented to time, patient oriented x3, moves all extremities, no focal motor deficits and CN's II-XI intact bilaterally Cranial nerves: Yes Equal, round and reactive pupils present Cognition (Neuro): normal cognition Extrem General: Yes full ROM, Yes no pedal edema and Yes no calf tenderness Psych Mental Status: mental status grossly normal Affect: normal affect Thought process: Normal thought process present Medical Decision Making Medical Decision Making MDM Narrative: Patient is a 27-year-old male presenting to the emergency department with complaint of productive cough and subjective fevers for the past 3 days. On exam patient is awake, A+Ox3, tachycardic, VS otherwise WNL, afebrile, normal neurological exam without focal deficits, physical exam findings as above. Given reported symptoms and physical exam findings, initial differential includes viral illness, bronchitis, pneumonia, pneumothorax. X-ray notable for right lower lobe infiltrate. My interpretation is in agreement with the radiologist's interpretation. Swabs for Covid, flu and RSV negative. Given that patient is otherwise healthy adult male, tolerating PO food and fluids, no currently febrile, and oxygenating adequately, feel he is stable for discharge home on PO antibiotics. Will prescribe doxycycline 100mg BID x 5 days, instructed patient to follow up with primary care provider for follow up chest x-ray to ensure resolution of pneumonia. Return precautions discussed at bedside. Advised patient to alternate Tylenol and ibuprofen and will prescribe lidocaine patches to rib pain. Patient verbalized understanding of and agreement with plan. Differential Diagnosis Differential Diagnoses: The differential diagnosis associated with the presentation includes As per [facility] Lab Data [facility] Lab Attestation statement: I reviewed the patient's lab results. As per [facility]. Labs: Lab Results 04/17/23 Range/Units 09:15 Influenza Type A (PCR) NEGATIVE (Negative) Influenza Type B (PCR) NEGATIVE (Negative) RSV RNA Qual (PCR) NEGATIVE (Negative) SARS-CoV-2 RNA (RT-PCR) NEGATIVE (Negative) Independent Interpretation I performed an independent interpretation of an: Plain X-Ray Interpretation: Right lower lobe infiltrate Radiology Impression Discussion of test interpretation with radiology: I have reviewed the radiologist's reading. Radiologist Impression: XR/XR chest 2V IMPRESSION: * Newly developed infiltrates presumably pneumonia right lower lobe. * No pleural effusion. External Record Review External record reviewed: Inpatient record, Office record and Outpatient record Prescription Management I considered prescription management with: Pain Medication and Antibiotic Discharge Plan Discharge Clinical Impression: Right lower lobe pneumonia Patient Disposition: Home, Self-Care Instructions: Community Acquired Pneumonia (DC), Pneumonia (ED) Additional Instructions: You were evaluated in the emergency department today for cough and right sided rib pain. Your x-ray showed evidence of a right lower lobe pneumonia. You are being prescribed antibiotics, please complete the full course as prescribed. You can take 650 mg Tylenol or 600 mg ibuprofen every 6 hours as needed for pain or fever. If necessary, you can alternate these medications every 3 hours. For example, at noon take Tylenol, then at 3:00 p.m. take ibuprofen, then at 6:00 p.m. take Tylenol, etc.. You will need to follow-up with your primary care provider to have repeat chest x-ray to confirm resolution of your pneumonia. Return to the emergency department if you develop worsening shortness of breath or difficulty breathing, chest pain, fevers not improved with Tylenol and ibuprofen or any other concerning symptoms. Prescriptions: New doxycycline hyclate 100 mg capsule 100 mg PO BID Qty: 10 0RF lidocaine 5 % adhesive patch,medicated 1 patch topical DAILY Qty: 15 0RF Rx Instructions: leave on most painful area for up to 12 hrs
[2023-04-17 10:07] LABS: Influenza A PCR NEGATIVE (Negative); Influenza B PCR NEGATIVE (Negative); Resp Syncy Virus RNA Qual PCR NEGATIVE (Negative); SARS COV2 PCR INHOUSE NEGATIVE (Negative)
== END 2023-04-17 10:46 | disposition home or self-care (01) ==
PROVIDERS: Emergency Provider Student in an Organized Health Care Education/Training Program; PCP Internal Medicine
DX: J18.9 Pneumonia, unspecified organism (principal); R05.9 Cough, unspecified; R07.81 Pleurodynia; R50.9 Fever, unspecified; Z20.822 Contact with and (suspected) exposure to COVID-19; Z20.828 Contact with and (suspected) exposure to other viral communicable diseases
CPT/HCPCS: 0241U; 71046; 99283

== ENCOUNTER 2023-10-21 07:38 | Emergency (ER) | payer OTHER, SELFPAY ==
[2023-10-21 07:53] VITALS: BP 102/72; PULSE 76; RESP 19; TEMP 36.6; O2SAT 96; BMI 21.9
[2023-10-21 08:16] LABS: Basophils Percent Auto 0.3 % (0-2); Eosinophils Percent Auto 0.2 % (0-4); Hematocrit 44.8 % (42.0-52.0); Hemoglobin 15.9 g/dl (14.0-18.0); Imm Gran Abs Auto 0.03 X10*3/uL (0.00-0.03); Imm Gran Pct Auto 0.3 % (0.0-0.4); Lymphocytes Absolute Auto 1.1 X10*3/uL (1.2-4.9); Lymphocytes Percent Auto 11.3 % (20-40); MANUAL DIFF FLAG NO; Mean Corpuscular HGB Conc 35.5 g/dl (31.0-36.0); Mean Corpuscular Hemoglobin 29.8 pg (27.0-33.0); Mean Corpuscular Volume 84.1 fL (80.0-98.0); Mean Platelet Volume 9.5 fL (9.4-12.4); Monocytes Absolute Auto 0.7 X10*3/uL (0.1-1.2); Monocytes Percent Auto 6.9 % (2-11); Neutrophils Absolute Auto 7.6 x10*3/uL (2.0-8.3); Platelet Count 292 X10*3/uL (160-400); Red Blood Count 5.33 X10*6/uL (4.60-5.80); Red Cell Distribution Width 12.8 % (11.0-16.0); White Blood Count 9.4 X10*3/uL (4.8-10.8)
[2023-10-21 08:35] LABS: Alanine Aminotransferase 9 U/L (0-40); Albumin Level 4.9 g/dL (3.5-5.0); Alkaline Phosphatase 68 U/L (39-117); Anion Gap 13 (12-20); Aspartate Amino Transferase 15 U/L (5-37); Bilirubin Direct 0.5 mg/dL (0.0-0.5); Bilirubin Total 1.6 mg/dL (0.0-1.0); Blood Urea Nitrogen 12 mg/dL (9-16); Calcium 10.5 mg/dL (8.4-10.2); Carbon Dioxide 27 mmol/L (22-29); Chloride 105 mmol/L (96-108); Creatinine Clr Calc Pharmacy 108.6; Estimated Glomerular Filt Rate > 60; Glucose Random 106 mg/dL (60-115); Lipase 8 U/L (8-78); Potassium 3.9 mmol/L (3.3-5.1); Sodium 141 mmol/L (135-145); Total Protein 8.2 g/dL (6.5-8.0)
--- NOTE | 2023-10-21 08:36 | ED_ITS ---
HPI - General Adult General Chief complaint: Nausea/Vomiting/Diarrhea Stated complaint: vomiting dizzy abd pain lightheaded Time Seen by Provider: 10/21/23 08:35 Source: patient Mode of arrival: ambulatory Limitations: no limitations History of Present Illness ED Provider: Keturah Blackwell PA-C HPI narrative: Patient is a 28 year old assigned male at with no reported medical history presenting to the emergency department today with epigastric pain, nausea, and vomiting. Patient states that over the last 4 hours he has been having epigastric pain, nausea, and vomiting. Patient denies any dizziness, lightheadedness, fever, chills, blurry vision, double vision, loss of vision, chest pain, difficulty breathing, shortness of breath, back pain, night sweats, pain with urination, increased urinary frequency, increased urinary urgency, blood in his urine or stool, syncope or a near syncopal episode, recent trauma or falls, bowel incontinence, bladder incontinence, or any other complaints at this time. Onset (ago): day(s) (4) Severity: mild Severity scale (1-10): 3 Relieving factors: none Exacerbating factors: none Associated symptoms: nausea/vomiting Treatments prior to arrival: none Related Data Previous Rx's ?Medication ?Instructions ?Recorded doxycycline hyclate 100 mg capsule 100 mg PO BID #10 caps 04/17/23 lidocaine 5 % topical patch 1 patch topical DAILY #15 ea 04/17/23 Allergies Allergy/AdvReac Type Severity Reaction Status Date / Time No Known Allergies Allergy Verified 10/21/23 07:55 Review of Systems 2 Constitutional: Constitutional: Reports no additional constitutional complaints, Denies chills, Denies fever(s) and Denies night sweats Eyes: Eyes: Reports no additional eye complaints, Denies blurry vision, Denies change in vision, Denies diplopia, Denies eye discharge, Denies loss of vision and Denies eye pain ENT: Denies dizziness Cardiovascular: Cardiovascular: Reports no additional cardiovascular complaints, Denies chest pain, Denies lightheadedness, Denies Loss of Consciousness and Denies dyspnea Respiratory: Respiratory: Reports no additional respiratory complaints and Denies dyspnea Gastrointestinal: Gastrointestinal: Reports no additional gastrointestinal complaints, Reports abdominal pain, Denies melena, Denies hematochezia, Denies change in bowel habits, Denies change in stool character, Reports nausea and Reports vomiting Genitourinary: Genitourinary: Reports no additional male genitourinary complaints, Denies hematuria, Denies oliguria, Denies difficulty urinating, Denies dysuria, Denies urinary frequency, Denies urinary hesitancy, Denies urinary incontinence and Denies urinary urgency Musculoskeletal: Musculoskeletal: Reports no additional musculoskeletal complaints, Denies numbness and Denies tingling Neurologic: Denies dizziness, Denies loss of vision, Denies numbness and Denies tingling Psychiatric: Psychiatric: Reports no additional psychiatric complaints Endocrine: Endocrine: Reports no additional endocrine complaints Hematologic/Lymphatic: Hematologic/Lymphatic: Reports no additional hematologic/lymphatic complaints Allergic/Immunologic: Allergic/Immunologic: Reports no additional allergic/immunologic complaints [facility] Past Medical History Attestation statement: The following information was validated with the patient. Source: old records reviewed and nursing notes reviewed Medical History Epidermal cyst of neck Pain in right shoulder Instability of right shoulder joint Surgical History S/P tonsillectomy Family History Family History Maternal Grandfather Hypertension Heart disease Maternal Grandmother Hypertension Paternal Grandfather Alzheimer's dementia Mental health disorder Social History Social History Housing: Apartment Alcohol intake: current Alcohol intake frequency: a few times a month Patient Tobacco Use Status: Never used Tobacco e-Cigarette/Vaping Use: Never Used Second Hand Smoke Exposure: No Substance Use Type: Marijuana Advance Directives: No Advance Directives Information Provided: No Do you have a plan to hurt others: No Plan service: No Current occupational status: employed Current occupational exposures/hazards: No Cognitive needs: No Hearing needs: No Vision needs: No Physical Exam ED Vital Signs: Vital Signs - 24 hr 10/21/23 07:53 10/21/23 10:47 10/21/23 10:51 Temperature 98 F 98 F Pulse Rate 76 74 74 Respiratory Rate 19 16 16 Blood Pressure 102/72 128/64 128/64 Pulse Oximetry 96 98 98 Oxygen Delivery Method Room Air Room Air Room Air BMI result Body Mass Index 21.9 Const General: cooperative, no acute distress, alert and awake Nutritional Appearance: well nourished Orientation/consciousness: patient oriented x3 Limitations: no limitations HENMT Head: Yes normal to inspection and Yes atraumatic Ears: hearing grossly normal bilaterally and external ears normal General nose exam: Normal external nose present, no nasal discharge noted and no epistaxis Face and sinus: Yes normal facial exam, No abrasion and No laceration Mouth: Normal oral and palatal mucosa present, no drooling and no muffled voice Eyes General: appearance normal, both eyes and all related structures Periorbital: periorbital findings normal Eyelids: Yes eyelids normal Conjunctivae: conjunctivae normal Pupils: Equal, round and reactive pupils present EOM: EOMs intact bilaterally Neck Neck: Yes normal visual inspection, Yes full ROM and Yes no lymphadenopathy Chest Chest palpation & inspection: normal inspection of the chest Resp Effort & Inspection: normal respiratory effort and able to speak in complete sentences GI Inspection: Yes normal to inspection Palpation (GI): Soft to palpation, not firm, nontender, no guarding and not rigid Neuro General: patient oriented x3 and moves all extremities Cranial nerves: Yes Equal, round and reactive pupils present Cognition (Neuro): normal cognition Motor exam (neuro): 5/5 motor strength present throughout Sensory Exam: Normal double simultaneous stimulation for sensation Coordination: [id number] test normal Extrem General: Yes normal to inspection, Yes full ROM and Yes capillary refill normal Psych Appearance: grossly normal Mental Status: mental status grossly normal Affect: normal affect Attitude: cooperative Thought process: Normal thought process present Thought content: Normal thought content present Insight: Good insight present (Psych) Medications Administered Discontinued Medications Generic Name Dose Route Start Last Admin Trade Name Barbara PRN Reason Stop Dose Admin Sodium Chloride 1,000 mls @ 999 mls/hr 10/21/23 08:45 10/21/23 10:17 Ns IV 10/21/23 09:45 Infused .Q1H1M BRENDAN Infusion Ondansetron HCl 4 mg 10/21/23 08:37 10/21/23 09:06 Ondansetron Hcl 4 Mg/2 Ml Vial IVPUSH 10/21/23 08:38 4 mg ONCE ONE Administration Pantoprazole Sodium 40 mg 10/21/23 08:43 10/21/23 09:06 Pantoprazole Sodium 40 Mg/10 Ml Vial IVPUSH 10/21/23 08:44 40 mg ONCE ONE Administration Sucralfate 1 gm 10/21/23 08:43 10/21/23 09:01 Sucralfate 1 Gm Tablet PO 10/21/23 08:44 1 gm ONCE ONE Administration Medical Decision Making Medical Decision Making [facility] Narrative: Patient is a 28 year old assigned male at with no reported medical history presenting to the emergency department today with nausea, vomiting, and epigastric pain. Patient's physical exam was unremarkable. Patient's blood work was unremarkable. I explained my physical exam findings as well as all test results to the patient. I answered all questions asked by the patient. Patient received IV protonix and fluids which he stated helped his symptoms significantly. I stressed the importance of the patient taking his medication as directed (either prescribed or as the over the counter packaging recommends). I stressed the importance of the patient following up with his primary care provider. I stressed the importance of the patient returning to the emergency department immediately if his symptoms were to worsen or if he were to develop any dizziness, shortness of breath, difficulty breathing, chest pain, blurry vision, loss of vision, nausea, vomiting, abdominal pain, fever, chills, back pain, or any other complaints. Patient verbalized agreement and understanding with this treatment plan and discharge. Differential Diagnosis Differential Diagnoses: The differential diagnosis associated with the presentation includes Epigastric pain GERD Nausea Vomiting Admission/Observation Consideration of admission/observation: Escalation of care including admission/observation considered Patient would have been admitted to the hospital had his work up had any findings where hospital admission was appropriate and his clinical presentation warranted hospital admission. Lab Data [facility] Lab Attestation statement: I reviewed the patient's lab results. My interpretation of these results are in the [facility] Rationale portion of this note. 10/21/23 08:11 10/21/23 08:11 Labs: Lab Results 10/21/23 Range/Units 08:11 WBC 9.4 (4.8-10.8) X10*3/uL RBC 5.33 (4.60-5.80) X10*6/uL Hgb 15.9 (14.0-18.0) g/dl Hct 44.8 (42.0-52.0) % MCV 84.1 (80.0-98.0) fL MCH 29.8 (27.0-33.0) pg MCHC 35.5 (31.0-36.0) g/dl RDW 12.8 (11.0-16.0) % Plt Count 292 (160-400) X10*3/uL MPV 9.5 (9.4-12.4) fL Immature Gran % (Auto) 0.3 (0.0-0.4) % Neut % (Auto) 81.0 H (45-73) % Lymph % (Auto) 11.3 L (20-40) % Charles % (Auto) 6.9 (2-11) % Eos % (Auto) 0.2 (0-4) % Baso % (Auto) 0.3 (0-2) % Lymph # (Auto) 1.1 L (1.2-4.9) X10*3/uL Charles # (Auto) 0.7 (0.1-1.2) X10*3/uL Eos # (Auto) 0.0 (0.0-0.4) X10*3/uL Baso # (Auto) 0.0 (0.0-0.2) X10*3/uL Abs Immat Gran (auto) 0.03 (0.00-0.03) X10*3/uL Absolute Neuts (auto) 7.6 (2.0-8.3) x10*3/uL Absolute Nucleated RBC 0.000 (0.0-0.012) X10*3/uL Nucleated RBC % (auto) 0.0 (0.0-0.2) /100WBC Sodium 141 (135-145) mmol/L Potassium 3.9 (3.3-5.1) mmol/L Chloride 105 (96-108) mmol/L Carbon Dioxide 27 (22-29) mmol/L Anion Gap 13 (12-20) BUN 12 (9-16) mg/dL Creatinine 0.97 (0.5-1.4) mg/dL Estim Creat Clear Calc 108.6 Estimated GFR > 60 Random Glucose 106 (60-115) mg/dL Calcium 10.5 H (8.4-10.2) mg/dL Total Bilirubin 1.6 H (0.0-1.0) mg/dL Direct Bilirubin 0.5 (0.0-0.5) mg/dL AST 15 (5-37) U/L ALT 9 (0-40) U/L Alkaline Phosphatase 68 (39-117) U/L Total Protein 8.2 H (6.5-8.0) g/dL Albumin 4.9 (3.5-5.0) g/dL Lipase 8 (8-78) U/L Tests considered The following testing was considered but not selected: I considered a CT scan of the abdomen/pelvis however, the patient's current clinical presentation did not warrant this. I discussed this with the patient who verbalized understanding and agreement. Discharge Plan Discharge Clinical Impression: Acute epigastric pain Patient Disposition: Home, Self-Care Instructions: Epigastric Pain (ED) Additional Instructions: Follow up with your primary care provider. Return to the emergency department immediately if your symptoms worsen or if you develop any dizziness, shortness of breath, difficulty breathing, chest pain, blurry vision, loss of vision, nausea, vomiting, abdominal pain, fever, chills, back pain, or any other complaints. Prescriptions: No Action doxycycline hyclate 100 mg capsule 100 mg PO BID Qty: 10 0RF lidocaine 5 % adhesive patch,medicated 1 patch topical DAILY Qty: 15 0RF Rx Instructions: leave on most painful area for up to 12 hrs Referrals: Arnaud George MD [Primary Care Provider] - Stand Alone Forms: Work/School Release Interventions: ED Discharge Assessment Last Done: 10/21/23 10:51 Discharge Date/Time: 10/21/23 10:51 Print Language: Mauritian
[2023-10-21] MEDS: Sucralfate 1 GM TABLET PO (09:01)
[2023-10-21] MEDS: 0.9 % Sodium Chloride 1,000 ML 999 ML IV (09:06)
[2023-10-21] MEDS: ondansetron HCL 4 MG/2 ML VIAL IVPUSH (09:06)
[2023-10-21] MEDS: Pantoprazole Sodium 40 MG/10 ML VIAL IVPUSH (09:06)
[2023-10-21 10:47] VITALS: BP 128/64; PULSE 74; RESP 16; O2SAT 98
[2023-10-21 10:51] VITALS: BP 128/64; PULSE 74; RESP 16; TEMP 36.6; O2SAT 98
== END 2023-10-21 10:51 | disposition home or self-care (01) ==
PROVIDERS: Emergency Provider Emergency Medicine; PCP Internal Medicine
DX: R10.13 Epigastric pain (principal); R11.2 Nausea with vomiting, unspecified
CPT/HCPCS: 36415; 80048; 80076; 83690; 85025; 96361; 96374; 96375; 99284; C9113; J2405

== ENCOUNTER 2023-11-03 07:04 | Emergency (ER) | payer OTHER, SELFPAY ==
--- NOTE | ~2023-11-03 | XR_ITS ---
EXAMINATION: XR SHOULDER, RIGHT CLINICAL INFORMATION: Right shoulder pain. COMPARISON: None available. TECHNIQUE: AP external rotation, Grashey, scapular Y views of the right shoulder. FINDINGS: Acromioclavicular and glenohumeral joint alignments are maintained. No evidence of acute fracture or dislocation. Joints appear unremarkable. No soft tissue calcifications. Visualized thorax is unremarkable. XR/XR shoulder RT min 2V IMPRESSION: No evidence of acute fracture or dislocation. Unremarkable right shoulder radiographs.
[2023-11-03 07:09] VITALS: BP 116/66; PULSE 86; RESP 16; TEMP 36.9; O2SAT 98; BMI 21.7
--- NOTE | 2023-11-03 08:11 | ED.EXTPRO ---
HPI - Extremity Problem General Chief complaint: Extremity Injury, Upper Stated complaint: dislocated arm ? Time Seen by Provider: 11/03/23 07:51 Source: patient Mode of arrival: ambulatory Limitations: no limitations History of Present Illness ED Provider: LUCERO HPI Narrative: 28 yo male R hand dominant here with untreated recurrent R sided shoulder dislocations has never followed up with surgeon. This AM went to put shirt on and felt shoulder go out then back in. He also notes he cannot reach above or behind him. MD Complaint: joint pain Onset (ago): hour(s) (1) Pain Consistency: constant Location: right and other (shoulder) Quality: aching Radiation: none Relieving factors: immobilization Exacerbating factors: range of motion Associated symptoms: denies other symptoms Context: other (hx of recurrent dislocations) Related Data Previous Rx's ?Medication ?Instructions ?Recorded doxycycline hyclate 100 mg capsule 100 mg PO BID #10 caps 04/17/23 lidocaine 5 % topical patch 1 patch topical DAILY #15 ea 04/17/23 Allergies Allergy/AdvReac Type Severity Reaction Status Date / Time No Known Allergies Allergy Verified 11/03/23 07:11 Review of Systems Review of Systems: Constitutional : No Fever, No Chills Eyes: No Eye Pain, No Swelling, No Redness, No Foreign Body Cardiovascular : No Chest Pain, No SOB Respiratory : No Cough, No Dyspnea Gastrointestinal : No Nausea, No Vomiting, No Diarrhea, No abdominal Pain Musculoskeletal : positive joint pain, No Myalgias, No Joint Swelling Skin : No Skin lacerations, No rash Neuro : No Weakness, No Numbness, No Loss of Consciousness, No Dizziness, No Headache Psych : No Anxiety/Panic, No Depression All other systems reviewed and are negative [facility] Past Medical History Attestation statement: The following information was validated with the patient. Source: old records reviewed Medical History Epidermal cyst of neck Pain in right shoulder Instability of right shoulder joint Surgical History S/P tonsillectomy Family History Family History Maternal Grandfather Hypertension Heart disease Maternal Grandmother Hypertension Paternal Grandfather Alzheimer's dementia Mental health disorder Social History Social History Housing: Apartment Alcohol intake: current Alcohol intake frequency: a few times a month Patient Tobacco Use Status: Never used Tobacco e-Cigarette/Vaping Use: Never Used Second Hand Smoke Exposure: No Substance Use Type: Marijuana Advance Directives: No service: No Current occupational status: employed Current occupational exposures/hazards: No Cognitive needs: No Hearing needs: No Vision needs: No Physical Exam Vital Signs: Vital Signs: Last Vital Signs Temp 98.5 F 11/03/23 07:09 Pulse 86 11/03/23 07:09 Resp 16 11/03/23 07:09 BP 116/66 11/03/23 07:09 Pulse Ox 98 11/03/23 07:09 O2 Del Method Room Air 11/03/23 07:09 BMI result Body Mass Index 21.7 Appearance: Alert. Oriented X3. No acute distress. Eyes: Pupils equal, round and reactive to light. ENT: Pharynx normal. Neck: Normal inspection. Neck supple. CVS: Pulses normal. Respiratory: No respiratory distress. Abdomen: Soft and nontender. Skin: Skin warm and dry. Normal skin color. Normal skin turgor. Extremities: No lower extremity edema. R shoulder no deformity arm hurts to range distal NV intact 2+ radial pulse Neuro: Oriented X 3. No motor deficit. No sensory deficit. Medical Decision Making Medical Decision Making MDM Narrative: 28 yo male here with c/o having R shoulder pain hx of recurrent dislocation presents again with same issues at this time low susp for dislocation will obtain xrays and place in sling - NV intact. Differential Diagnosis Differential Diagnoses: The differential diagnosis associated with the presentation includes dislocation, strain, sprain Independent Interpretation I performed an independent interpretation of an: Plain X-Ray (normal ) Radiology Impression Discussion of test interpretation with radiology: I have reviewed the radiologist's reading. External Record Review External record reviewed: Inpatient record Prescription Management I considered prescription management with: Other Discharge Plan Discharge Clinical Impression: Right shoulder strain Patient Disposition: Home, Self-Care Instructions: Shoulder Immobilizer (ED) Additional Instructions: sling for 3 days then do not reach above or behind for 2 weeks to prevent dislocations follow up with orthopedic doctor limit lifting R arm to 10lbs for 1 week. Prescriptions: No Action doxycycline hyclate 100 mg capsule 100 mg PO BID Qty: 10 0RF lidocaine 5 % adhesive patch,medicated 1 patch topical DAILY Qty: 15 0RF Rx Instructions: leave on most painful area for up to 12 hrs Referrals: Betty Spencer PA-C [Physician Loan Secretary] - (call to schedule - orthopedics) Stand Alone Forms: Work/School Release Print Language: Citizen Of [place]
[2023-11-03 08:35] VITALS: BP 132/73; PULSE 65; RESP 18; TEMP 36.8; O2SAT 96
== END 2023-11-03 08:36 | disposition home or self-care (01) ==
PROVIDERS: Emergency Provider Emergency Medicine; PCP Internal Medicine
DX: S46.911A Strain of unspecified muscle, fascia and tendon at shoulder and upper arm level, right arm, initial encounter (principal); M25.511 Pain in right shoulder; Y33.XXXA Other specified events, undetermined intent, initial encounter; Y93.89 Activity, other specified; Y92.89 Other specified places as the place of occurrence of the external cause; Y99.8 Other external cause status
CPT/HCPCS: 73030; 99282; 99283

== ENCOUNTER 2023-11-11 13:03 | Outpatient (AMB) | payer OTHER, SELFPAY ==
--- NOTE | 2023-11-11 13:10 | MHC.OFFVIS ---
Intake Visit Reasons: OV-Right shoulder strain Intake Note: Brain is a 28 year right hand dominant male for a follow up of his right shoulder dislocation. Patient reports he went to the ED on 11/03/23 due to dislocation of his shoulder. He states that his shoulder feels very sore and he tries not to use his right arm much. Allergies No Known Allergies Allergy (Verified 11/11/23 13:12) HPI HPI OV-Right shoulder strain: Details: 28-year-old right hand dominant male who presents in the office today for a follow-up of right shoulder pain. I last saw the patient in the office on 03/27/2022 when he was referred to physical therapy to work on strengthening and stability. ? ? The patient called his PCP office on 06/21/2023 reporting his right shoulder ?came out of place? when helping his sister move. He stated he reduced the shoulder himself. However, when he was sleeping on 06/19/2023 the shoulder dislocated a second time. He did not follow-up with his PCP office.? ? The patient presented to the ED on 11/03/2023 when he reported his right should dislocated status post putting his shirt on. X-rays were obtained. He was placed in a sling for three days and instructed not to reach over or behind him for two weeks. He was also given a lifting restriction of nothing greater than ten pounds. ? ? While in the office today, the patient reports his right shoulder is sore. He states he avoids use of the right upper extremity. ? [facility] Medical History Epidermal cyst of neck Pain in right shoulder Instability of right shoulder joint Surgical History S/P tonsillectomy Family History Maternal Grandfather Hypertension Heart disease Maternal Grandmother Hypertension Paternal Grandfather Alzheimer's dementia Mental health disorder Social History Housing: Apartment Alcohol intake: current Alcohol intake frequency: a few times a month Patient Tobacco Use Status: Never used Tobacco e-Cigarette/Vaping Use: Never Used Second Hand Smoke Exposure: No Substance Use Type: Marijuana service: No Current occupational status: employed Current occupational exposures/hazards: No Cognitive needs: No Hearing needs: No Vision needs: No Review of Systems Const All systems reviewed & are unremarkable except as noted in HPI and below Physical Exam Const General: cooperative, healthy appearing and no acute distress Orientation/consciousness: patient oriented x3 HEENT Head: Yes normal to inspection, Yes normocephalic and Yes atraumatic Eyes General: appearance normal, both eyes and all related structures Resp Effort & Inspection: normal respiratory effort and able to speak in complete sentences Cardio Rate: regular rate Peripheral pulses: Peripheral pulses 2+ throughout GI Palpation (GI): Soft to palpation Skin Lesions: no lesions Rashes: no rashes Neuro General: patient oriented x3 Extrem Other: Right shoulder: Normal to inspection. Full shoulder ROM in all planes. Negative sulcus sign. Patient reports instability with crank test. Negative cross body reach. Negative empty can. Negative drop arm. NVI. Assessment & Plan Assessment & Plan (1) Instability of right shoulder joint: Code(s): M25.311 - Other instability, right shoulder Category: Medical Plan Mr. Jere Talley is a 28-year-old right hand dominant male who presents in the office today for a follow-up of right shoulder pain. I last saw the patient in the office on 03/27/2022 when he was referred to physical therapy to work on strengthening and stability. ? ? The patient called his PCP office on 06/21/2023 reporting his right shoulder ?came out of place? when helping his sister move. He stated he reduced the shoulder himself. However, when he was sleeping on 06/19/2023 the shoulder dislocated a second time. He did not follow-up with his PCP office.? ? The patient presented to the ED on 11/03/2023 when he reported his right should dislocated status post putting his shirt on. X-rays were obtained. He was placed in a sling for three days and instructed not to reach over or behind him for two weeks. He was also given a lifting restriction of nothing greater than ten pounds. ? ? While in the office today, the patient reports his right shoulder is sore. He states he avoids use of the right upper extremity.? ? The patient will be referred to physical therapy to work on ROM and strengthening of the right shoulder. At his last appointment he was referred to physical therapy but was unable to attend due to work hour restrictions. However, he has a new job and is able to attend. Should the patient continue to have pain or instability we would consider MRI imagining. However, the patient would like to defer surgical treatment if possible.?The patient can either follow-up in person or via telehealth. Follow-up will be in six weeks, or sooner if needed. ? ? X-rays of the right shoulder, obtained on 11/03/2023, revealed: No evidence of acute fracture or dislocation. Unremarkable right shoulder radiographs? Orders: Orders PT Evaluation and Treatment Today M25.311 - Other instability, right shoulder Patient Instructions: Scribed by Fabby Conner auditor medical claims, for Betty Spencer PA-C on 11/11/2023 at 1:13 pm, EST.? Coding Level of Care Code Est Pt Level 3 (44910) Diagnoses Instability of right shoulder joint M25.311
== END 2023-11-11 13:52 | disposition home or self-care (01) ==
PROVIDERS: PCP Internal Medicine; Visit Provider Physician Assistant
DX: M25.311 Other instability, right shoulder (principal)
CPT/HCPCS: 99213

== ENCOUNTER → 2023-11-11 13:03 | Outpatient (BNVA) | payer OTHER, SELFPAY | PROVIDERS: PCP Internal Medicine; Visit Provider Physician Assistant | DX: M25.311 Other instability, right shoulder (principal) | CPT/HCPCS: 99212 ==

== ENCOUNTER 2023-11-22 12:05 | Outpatient (AMB) | payer OTHER, SELFPAY ==
--- NOTE | 2023-11-22 12:24 | AM.OFFWIN_ITS ---
Intake Vital Signs 11/22/23 12:25 Height 5 ft 8 in Weight 140 lb BMI 21.3 BP 102/70 Blood Pressure Location Rt brachial Position Sitting Pulse 64 Pulse Source Pulse Oximeter Temp 98.2 F Temp Source Oral Pulse Oximetry (%) 98 Oxygen Delivery Method Room Air Intake Visit Reasons: possible Covid Intake Note: pt here c/o diarrhea x 2 days Patient Tobacco Use Status: Never used Tobacco Allergies No Known Allergies Allergy (Verified 11/22/23 12:24) Do you need a note to return to daycare/school/sports/work: Yes HPI possible Covid HPI Details This note is constructed using voice recognition software. While every effort has been made to ensure accuracy, correctional casework specialist errors may have been included. The patient is a 28 year old male who presents to the clinic today with concern for COVID. He notes that his employer has advised him he needs to be tested for COVID, because he has had sinus congestion for the past week and diarrhea for the last 2 days. 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 [facility] Medical History Epidermal cyst of neck Pain in right shoulder Instability of right shoulder joint Surgical History S/P tonsillectomy Family History Maternal Grandfather Hypertension Heart disease Maternal Grandmother Hypertension Paternal Grandfather Alzheimer's dementia Mental health disorder Social History Housing: Apartment Alcohol intake: current Alcohol intake frequency: a few times a month Patient Tobacco Use Status: Never used Tobacco e-Cigarette/Vaping Use: Never Used Second Hand Smoke Exposure: No Substance Use Type: Marijuana service: No Current occupational status: employed Current occupational exposures/hazards: No Cognitive needs: No Hearing needs: No Vision needs: No Review of Systems Const All systems reviewed & are unremarkable except as noted in HPI and below Physical Exam Vital Signs: Last Vital Signs Temp 98.2 F 11/22/23 12:25 Pulse 64 11/22/23 12:25 BP 102/70 11/22/23 12:25 Pulse Ox 98 11/22/23 12:25 Oxygen Delivery Method Room Air 11/22/23 12:25 BMI result Body Mass Index 21.3 Const General: cooperative, healthy appearing, comfortable and no acute distress Orientation/consciousness: patient oriented x3 Limitations: no limitations HEENT Head: Yes normal to inspection Ears: hearing grossly normal bilaterally, external ears normal and TM's normal bilaterally General nose exam: Normal external nose present, Normal nares present and No nasal discharge present Face and sinus: Yes normal facial exam and Yes sinuses nontender Mouth: Normal oral and palatal mucosa present and moist mucous membranes Throat: Yes tonsils normal, Yes uvula midline and Yes posterior oropharynx abnormal (Erythema) Eyes General: appearance normal, both eyes and all related structures Neck Neck: Yes normal visual inspection Resp Effort & Inspection: normal respiratory effort, able to speak in complete sentences, Actively coughing, no respiratory distress, not tachypneic, no tripod positioning and no use of accessory muscles Auscultation: clear to auscultation bilaterally Cardio Jugular venous distension: no JVD Rate: regular rate Rhythm: regular rhythm Heart sounds: S1 normal heart sound present, S2 normal heart sound present, no click, no gallops, no murmurs and no rubs GI Inspection: Yes normal to inspection and No distended Percussion: Yes normal to percussion Auscultation: normal bowel sounds Skin General skin exam: no rashes or lesions noted, elasticity normal and turgor normal Neuro General: patient oriented x3 Extrem General: Yes normal to inspection and Yes no clubbing, cyanosis or edema Assessment & Plan Assessment & Plan (1) URI (upper respiratory infection): Code(s): J06.9 - Acute upper respiratory infection, unspecified Qualifiers: URI type: unspecified URI Qualified Code(s): J06.9 - Acute upper respiratory infection, unspecified Plan: Viral swab obtained, results anticipated later today. Reviewed quarantine measures, and avoidance of exposure to other people. Advised mask wearing. Discussed [id number] supportive measures, increased hydration. Discussed antiviral therapy however given symptom onset one-week ago, would not be beneficial for him. Plan See above for full details and plan. Orders: Orders SARS-CoV2/FLU/RSV Today J06.9 - Acute upper respiratory infection, unspecified Coding Level of Care Code Est Pt Level 3 (99628) Diagnoses Upper respiratory tract infection, unspecified type J06.9 URI type: unspecified URI
[2023-11-22 12:25] VITALS: BP 102/70; PULSE 64; TEMP 36.8; O2SAT 98; BMI 21.3
== END 2023-11-22 12:47 | disposition home or self-care (01) ==
PROVIDERS: PCP Internal Medicine; Visit Provider Registered Nurse
DX: J06.9 Acute upper respiratory infection, unspecified (principal)
CPT/HCPCS: 99213

== ENCOUNTER 2023-11-22 12:29 | Outpatient (REF) | payer OTHER, SELFPAY ==
[2023-11-22 17:42] LABS: Influenza A PCR NEGATIVE (Negative); Influenza B PCR NEGATIVE (Negative); Resp Syncy Virus RNA Qual PCR NEGATIVE (Negative); SARS COV2 PCR INHOUSE NEGATIVE (Negative)
== END 2023-11-22 12:30 | disposition home or self-care (01) ==
LOC: HO.LNP 12:29
PROVIDERS: Visit Provider Registered Nurse
DX: J06.9 Acute upper respiratory infection, unspecified (principal)
CPT/HCPCS: 0241U

== ENCOUNTER 2023-12-07 14:00 | Outpatient (RCR) | payer OTHER, SELFPAY ==
--- NOTE | 2023-11-30 12:33 | MHC.PT.EP ---
[facility] [place] Office [place] Office [place] Office [address] Roscoe Gomez [address] [phone] F: [phone] F: [phone] F: [phone] F: [phone] Physical Therapy Plan of Care Date of Evaluation: 11/30/23 Date of Surgery: Diagnosis: R shoulder instability Assessment: 28 y/o male referred to PT with R shoulder instability. He has had multiple R shoulder dislocations that have occurred throwing, donning shirt, coughing, and reaching. Currently reports difficulty with 'everything' that involves R arm. Examination shows decreased R shoulder ROM and strength, atrophy of scapular and RTC muscles, visual anterior R GH capsule laxity, and impaired postural awareness. Recommend PT 2x/week for 8 weeks to address impairments, implement HEP, and optimize functional mobility. Educated pt on shoulder anatomy with 3D model, instability, precautions such as avoiding horizontal abduction, reaching > 100* overhead and behind head and POC Frequency and Duration: The patient will be seen 2x/week for 8 weeks Short Term Goals: 4 weeks I with HEP Pt will demonstrate full shoulder ROM Penitentiary Goals: 8 weeks I with HEP and self management of sx Improve SPADI to 45/130 (IR 61/130) Pt will be able to reach overhead without episodes of instability 10/10x Treatment Plan: Modalities to reduce pain, spasms and effusion. Manual therapy to restore motion and function. Therapeutic exercise to improve strength and flexibility. Neuromuscular re-education for posture and balance. Therapeutic activities to return to functional activities of daily living. Electronically signed by: Lolis Hou PT Please sign and return to therapist. Thank you for your referral.
--- NOTE | 2023-12-22 12:48 | MHC.PT.DC ---
[facility] [place] Office [place] Office [place] Office [address] Roscoe Gomez [address] [phone] F: [phone] F: [phone] F: [phone] F: [phone] Physical Therapy Discharge Report Diagnosis: R shoulder instability Date of Surgery: Date of Evaluation: 11/30/23 Date of Discharge: 12/22/23 Treatments to Date: 2 Cancellations to Date: 0 No Shows to Date: 4 Discharge Status: Recommend MD Follow-up Discharge Summary: Pt d/c d/t noncompliance with scheduling policy and 3 consecutive no show visits. Electronically signed by: Lolis Hou PT Please sign and return to therapist. Thank you for your referral.
== END 2023-12-22 12:48 | disposition home or self-care (01) ==
LOC: HO.PT 14:00
PROVIDERS: PCP Internal Medicine; Visit Provider Physician Assistant
DX: M25.311 Other instability, right shoulder (principal)
CPT/HCPCS: 97110; 97161

== ENCOUNTER 2024-01-11 23:10 | Emergency (ER) | payer OTHER, SELFPAY ==
[2024-01-11 23:15] VITALS: BP 123/81; PULSE 120; RESP 20; TEMP 36.7; O2SAT 96; BMI 24.3
== END 2024-01-12 02:37 | disposition left against medical advice (07) ==
PROVIDERS: Emergency Provider Emergency Medicine
DX: M79.642 Pain in left hand (principal)
CPT/HCPCS: 99281